=== PATIENT | male | born 1980 | race Caucasian/White ===

== ENCOUNTER 2025-01-05 09:47 | Outpatient (REF) | payer OTHER, SELFPAY ==
--- OUTSIDE RECORDS SUMMARY | 2025-01-05 10:03 | XMS_ITS | Clinical Summary ---
Author Organization [facility] Address [address] [place] [address] Care Team Providers Care Showcase Maker Name Role Phone Unavailable Primary Care Provider Unavailabl e Source Comments PLEASE NOTE, if this patient is a minor, it may be UNLAWFUL to discuss sensitive information that is contained in these records (such as FAMILY PLANNING, MENTAL HEALTH or SUBSTANCE ABUSE) with the minor patient's parent or other person without the patient's specific authorization.[facility] Immunizations Immunization Administration Dates Next Due PFIZER COVID VACCINE, PURPLE CAP, 12+ 08/29/2021 ,07/22/2021 Social History Tobacco Use Types Packs/Day Years Used Date Smoking Tobacco: Never Assessed Social Connections Answer Date Recorded Social Connections and Isolation 0 07/22/2021 Financial Resource Strain Answer Date R ecorded Financial Resource Strain 0 2021 Stress Answer Date Recorded Stress 0 07/22/2021 Physical Activity Answer Date Recorded Physical Activity 0 07/22/2021 Food Insecurity Answer Date Recorded Food 0 07/22/2021 Transportation Needs Answer Date Record ed Transportation 0 07/22/2021 Housing Stability Answer Date Recorded Housing 0 07/22/2021 Safety and Environment Answer Date Sahil rded Safety 0 07/22/2021 Utilities Answer Date Recorded Utilities 0 07/22/2021 Employment Answer Date Recorded Employment 0 07/22/2021 Sex and Gender Information Value Date Recorded Sex Assigned at Not on file Legal Sex Male 1:25 PM PDT Gender Identity Not on file Sexual Orientation Not on file Plan of Treatment Health Maintenance Due Date Last Done Comments Anxiety Screening 1981 Diabetes Screening 1981 Hepatitis C Screening 1981 Lipid Screening 1981 Tobacco Screening 1981 HIV Screening 1996 Hypertension Screening (#1) 1999 Imm-Hepatitis B (1 of 3 - 19 + 3-dose series) 2000 [id number] ( season) 2024 022, 07/22/2021 Alcohol and Drug Screen 07/19/2024 Depression Annual Screen 07/19/2024 Imm-DTaP/Tdap/Td (2 - Td or Tdap) 01/04/2025 015 Imm-Influenza (Season Ended) 2025 Insurance COVID19 [employer] UNINSURED TESTING AND TREATMENT FUND
[2025-01-05 12:35] LABS: TSH reflex Free T4 0.57 uIU/mL (0.32-4.0); Vitamin D 25-OH Total 33.5 ng/mL (>30)
== END 2025-01-05 09:48 | disposition home or self-care (01) ==
LOC: HO.HHCL 09:47
PROVIDERS: PCP Nurse Practitioner; Visit Provider Nurse Practitioner
DX: R00.2 Palpitations (principal); E55.9 Vitamin D deficiency, unspecified
CPT/HCPCS: 36415; 82306; 84443

== ENCOUNTER → 2025-01-18 15:03 | Outpatient (REF) | payer OTHER, SELFPAY ==
--- OUTSIDE RECORDS SUMMARY | 2025-01-18 15:05 | XMS_ITS | Clinical Summary ---
Author Organization [facility] Address [address] [place] [address] Phone Care Team Providers Care Sap Bw Bi Developer Name Role Phone Physician, No Pcp Primary Care Provider Unavaila ble Allergies No known active allergies Medications albuterol HFA (PROAIR HFA ; PROVENTIL HFA ; VENTOLIN HFA) 90 mcg/actuation inhaler Inhale 2 Puffs into the lungs every 6 hours as needed for Cough or Wheezing. 7 Active montelukast (SINGULAIR) 10 mg tablet TAKE 1 TAB BY MOUTH AT BEDTIME. 7 Active cetirizine (ZyrTEC) 10 mg capsule Take 10 mg by mouth. Daily Active albuterol 2.5 mg /3 mL (0.083 %) nebulizer solution Take 1 Vial by nebulization every 4 hours as needed for Wheezing. 6 Active fluticasone propionate (FLONASE) 50 mcg/actuation nasal spray 2 Sprays by Nasal route daily. 6 Active Active Problems Problem Noted Date Diagnosed Date Allergic conjunctivitis 11/12/2015 Allergic rhinitis due to pollen 11/12/2015 RAD (reactive airway disease) 11/12/2015 Encounters Date Type Department Care Team Description 12/05/2024 6:14 PM EDT - 12/05/2024 7:30 PM EDT Emergency [facility] Emergency [address] [place] [address] Tom Etienne MD Tachycardia (Primary Dx) Discharge Disposition: Home or Self Care from Last 3 Months Immunizations Name Administration Dates Next Due Pneumococcal polysaccharide 23 valent (Pneumovax 23) 2yo and older 11/27/2016 Tdap Tetanus diptheria acell ular pertussis (Boostrix; Adacel) 7yo and older 01/04/2015 Surgical History Surgery Date Site/Laterality Comments OTHER SURGICAL HISTORY PROCEDURE: DENIES PREVIOUS SURGERY Medical History Medical History Date Comments Asthma DX:Asthma Family History Medical History Relation Name Comments Hypertension Mother Heart attack Paternal Grandfather age 60 Relation Name Status Comments Mother Paternal Grandfather Social History Tobacco Use Types Packs/Day Years Used Date Smoking Tobacco: Never Alcohol Use Standard Drinks/Week Comments Yes 0 (1 standard drink = 0.6 oz pur e alcohol) Sex and Gender Information Value Date Recorded Sex Assigned at Not on file Legal Sex Male 12:52 AM EST Gender Identity Not on file Sexual Orientation Not on file Obstetrics History Last Filed Vital Signs Vital Sign Reading Time Taken Comments Blood Pressure 138/103 12/05/2024 7:17 PM EDT Pulse 80 12/05/2024 7:17 PM EDT Temperature 36.6 C (97.9 F) 12/05/2024 7:17 PM EDT Respiratory Rate 18 12/05/2024 7:17 PM EDT Oxygen Saturation 98% 12/05/2024 7:17 PM EDT Inhaled Oxygen Concentration - - Weight 95.3 kg (210 lb) 12/05/2024 2:56 PM EDT Height 177.8 cm (5' 10 ) 12/05/2024 2:56 PM EDT Body Mass Index 30.13 12/05/2024 2:56 PM EDT Plan of Treatment Health Maintenance Due Date Last Done Comments Hepatitis B Vaccines (1 of 3 - 19+ 3-dose series) 2000 Pneumococcal Vaccine: Pediatrics (0 to 5 Years) and At-Risk Patients (6 to 64 Years) (2 of 2 - PCV) 11/27/2017 11/27/2016 Social Influencers of Health Screening 06/21/2022 Depression Screening 07/22/2023 07/22/2022 COVID-19 Vaccine (2023-2 5 season) 2024 05/04/2022, 08/29/2021, 07/22/2021 DTaP,Tdap,and Td Vaccines (2 - Td or Tdap) 01/04/2025 01/04/2015 Influenza Vaccine (Season Ended) 2025 05/01/2022 Cholesterol Screening (Lipid Panel) 05/04/2027 05/04/2022, 05/21/2015 HIV Screening Completed 05/21/2015 Hepatitis C Screening Completed 05/21/2015 HIB Vaccines Aged Out No longer eligi ble based on patient's age to complete this topic HPV Vaccines Aged Out No longer eligi ble based on patient's age to complete this topic Hepatitis A Vaccines Aged Out No long er eligible based on patient's age to complete this topic IPV Vaccines Aged Out No longer eligi ble based on patient's age to complete this topic MMR Vaccines Aged Out No longer eligi ble based on patient's age to complete this topic Meningococcal ACWY Vaccine Aged Out N o longer eligible based on patient's age to complete this topic Meningococcal B Vaccine Aged Out No l onger eligible based on patient's age to complete this topic RSV Immunization Patients Under 20 months Aged Out No longer eligible b ased on patient's age to complete this topic Varicella Vaccines Aged Out No longer eligible based on patient's age to complete this topic Procedures Procedure Name Priority Date/Time Associated Diagnosis Comments ECG ANNOTATED 12/06/2024 XR CHEST 2 VIEWS STAT 12/05/2024 4:39 PM EDT TROPONIN I HIGH SENSITIVITY STAT 12/05/2024 4:26 PM EDT ECG 12-LEAD STAT 12/05/2024 4:14 PM EDT CBC WITH AUTO DIFFERENTIAL STAT 12/05/2024 2:53 PM EDT B-TYPE NATRIURETIC PEPTIDE STAT 12/05/2024 2:53 PM EDT MAGNESIUM STAT 12/05/2024 2:53 PM EDT LIPASE STAT 12/05/2024 2:53 PM EDT COMPREHENSIVE METABOLIC PANEL STAT 12/05/2024 2:53 PM EDT CBC AND DIFFERENTIAL STAT 12/05/2024 2:53 PM EDT TROPONIN I HIGH SENSITIVITY STAT 12/05/2024 2:53 PM EDT ECG 12-LEAD STAT 12/05/2024 2:45 PM EDT HEPATITIS C SCREENING Routine 05/21/2015 HIV SCREENING Routine 05/21/2015 LIPID PANEL Routine 05/21/2015 from Last 3 Months or Most Recently Relevant to Health Maintenance Results * ECG-Annotated (12/06/2024) us Provider Onbase MD ECG ORDERABLES Final Result * XR Chest 2 Views (12/05/2024 4:39 PM EDT) Anatomical Region Laterality Modality Body Radiographic Rowan ging 12/05/2024 4:49 PM EDT Impressions 12/05/2024 4:50 PM EDT No evidence of active pulmonary disease. No significant change from the prior study. -------- FINAL REPORT -------- Dictated By: Kahlil Sotelo Dictated Date: 12/05/2024 16:49 ET Assigned Physician: Kahlil Sotelo Reviewed and Electronically Signed By: Kahlil Sotelo Signed Date: 12/05/2024 16:50 ET Workstation ID: [id number] Transcribed By: Self Edit Transcribed Date: 12/05/2024 16:49 ET Narrative 12/05/2024 4:50 PM EDT INDICATION: Chest pain for one week FINDINGS: Two views of the chest were obtained. Compared to multiple prior studies most recent from February 21, 2022. Lung martinez are clear. Cardiomediastinal silhouette is normal in size and shape. Bony structures are within normal limits for the patient's age. Procedure Note Kahlil Sotelo MD - 12/05/2024 INDICATION: Chest pain for one week FINDINGS: Two views of the chest were obtained. Compared to multiple priorstudies most recent from February 21, 2022. Lung martinez are clear. Cardiomediastinal silhouette is normal in size and shape. Bony structures are within normal limits for the patient's age. IMPRESSION: No evidence of active pulmonary disease. No significant change from theprior study. -------- FINAL REPORT -------- Dictated By: Kahlil Sotelo Dictated Date: 12/05/2024 16:49 ET Assigned Physician: Kahlil Sotelo Reviewed and Electronically Signed By: Kahlil Sotelo Signed Date: 12/05/2024 16:50 ET Workstation ID: [id number] Transcribed By: Self Edit Transcribed Date: 12/05/2024 16:49 ET us Merlin Epstein DO IMG XR PROCEDURES Final Res ult * Troponin I high sensitivity (12/05/2024 4:26 PM EDT) Only the most recent of2 resultswithin the time period is included. [facility] High Sensitivity Troponin I 6 <=79 ng/L LAB CHEMISTRY METHOD 12/05/2024 5:18 PM EDT [facility] Blood Venous blood specimen / Unknown Venipuncture / Unknown 12/05/2024 4:26 PM EDT 12/05/2024 4:40 PM EDT Narrative [facility] - 12/05/2024 5:18 PM EDT High levels of biotin in samples may falsely decrease hsTroponin values. Use caution when interpreting hsTroponin results in patients taking biotin who exhibit renal impairment (eGFR <60) or in patients taking more than 20 mg/day of biotin. us Merlin Epstein DO LAB BLOOD ORDERABLES Final Result [facility] [address] [place] [address], [place] [phone] * ECG 12 lead (12/05/2024 4:14 PM EDT) Only the most recent of2 resultswithin the time period is included. [facility] Signature Ventricular Rate ECG 74 BPM GEMUSE Atrial Rate 74 BPM GEMUSE P-R Interval 176 ms GEMUSE QRS Duration 98 ms GEMUSE Q-T Interval 374 ms GEMUSE QTc 415 ms GEMUSE P Wave Brock 49 degrees GEMUSE R Brock 48 degrees GEMUSE T Brock 56 degrees GEMUSE ECG Interpretation Normal sinus rhythm Normal ECG When compared with ECG of 05-DEC-2024 14:45, No significant change was found Confirmed by VIRGINIA ARMSTRONG ([id number]) on 12/06/2024 5:34:41 PM GEMUSE 12/05/2024 4:14 PM EDT 12/06/2024 5:34 PM EDT us Merlin Epstein DO ECG ORDERABLES Final Resul t GEMUSE * (ABNORMAL) CBC auto differential (12/05/2024 2:53 PM EDT) WBC 6.1 4.8 - 10.8 K/mcL LAB HEMETOLOGY METHOD 12/05/2024 3:18 PM EDT [facility] RBC 4.60 4.50 - 5.50 M/mcL LAB HEMETOLOGY METHOD 12/05/2024 3:18 PM EDT [facility] Hemoglobin 14.2 13.5 - 17.5 g/dL LAB HEMETOLOGY METHOD 12/05/2024 3:18 PM EDT [facility] Hematocrit 40.9(L) 42.0 - 54.0 % LAB HEMETOLOGY METHOD 12/05/2024 3:18 PM EDT [facility] MCV 89.9 79.0 - 98.0 FL LAB HEMETOLOGY METHOD 12/05/2024 3:18 PM EDT [facility] MCH 31.2 27.0 - 32.0 pcg LAB HEMETOLOGY METHOD 12/05/2024 3:18 PM EDT [facility] MCHC 34.7 32.0 - 37.0 g/dL LAB HEMETOLOGY METHOD 12/05/2024 3:18 PM EDT [facility] RDW 12.4 11.0 - 15.0 % LAB HEMETOLOGY METHOD 12/05/2024 3:18 PM EDT [facility] Platelets 199 130 - 400 K/mcL LAB HEMETOLOGY METHOD 12/05/2024 3:18 PM EDT [facility] MPV 9.6 7.0 - 11.0 FL LAB HEMETOLOGY METHOD 12/05/2024 3:18 PM EDT [facility] NRBC 0.0 <1.0 % LAB HEMETOLOGY METHOD 12/05/2024 3:18 PM EDT [facility] NRBC Absolute 0.00 <0.10 K/mcL LAB HEMETOLOGY METHOD 12/05/2024 3:[facility] PM [facility] Neutrophils Relative 44.9 % LAB HEMETOLOGY METHOD 12/05/2024 3:18 PM EDT [facility] Lymphocytes Relative 33.7 % LAB HEMETOLOGY METHOD 12/05/2024 3:18 PM EDT [facility] Monocytes Relative 8.0 % LAB HEMETOLOGY METHOD 12/05/2024 3:18 PM [facility] Eosinophils Relative 12.5 % LAB HEMETOLOGY METHOD 12/05/2024 3:18 PM EDT [facility] Basophils Relative 0.7 % LAB HEMETOLOGY METHOD 12/05/2024 3:18 PM EDT [facility] Immature Granulocytes Relative 0.2 % LAB HEMETOLOGY METHOD 12/05/2024 3:18 PM EDT [facility] Neutrophils Absolute 2.76 1.50 - 7.00 K/mcL LAB HEMETOLOGY METHOD 12/05/2024 3:18 PM EDT [facility] Lymphocytes Absolute 2.07 1.00 - 5.00 K/mcL LAB HEMETOLOGY METHOD 12/05/2024 3:18 PM EDT [facility] Monocytes Absolute 0.49 0.20 - 1.00 K/mcL LAB HEMETOLOGY METHOD 12/05/2024 3:18 PM EDT [facility] Eosinophils Absolute 0.77(H) 0.00 - 0.50 K/mcL LAB HEMETOLOGY METHOD 12/05/2024 3:18 PM EDT [facility] Basophils Absolute 0.04 0.00 - 0.20 K/[facility] LAB HEMETOLOGY METHOD 12/05/2024 3:18 PM EDT [facility] Immature Granulocytes Absolute 0.01 0.00 - 0.03 K/[facility] LAB HEMETOLOGY METHOD 12/05/2024 3:18 PM EDT [facility] Blood Venous blood specimen / Unknown Venipuncture / Unknown 12/05/2024 2:53 PM EDT 12/05/2024 3:09 PM EDT Merlin Epstein DO LAB BLOOD ORDERABLES Final Result [facility] [address] [place] [address], [place] [phone] * B-type natriuretic peptide (12/05/2024 2:53 PM EDT) BNP <2 <=100 pcg/mL LAB CHEMISTRY METHOD 12/05/2024 3:42 PM EDT [facility] Blood Venous blood specimen / Unknown Venipuncture / Unknown 12/05/2024 2:53 PM EDT 12/05/2024 3:09 PM EDT Merlin Epstein DO LAB BLOOD ORDERABLES Final Result [facility] [address] [place] [address], [place] [phone] * Magnesium (12/05/2024 2:53 PM EDT) [facility] Magnesium 2.0 1.9 - 2.6 mg/dL LAB CHEMISTRY METHOD 12/05/2024 3:39 PM EDT [facility] Blood Venous blood specimen / Unknown Venipuncture / Unknown 12/05/2024 2:53 PM EDT 12/05/2024 3:09 PM EDT Merlin Epstein LAB BLOOD ORDERABLES Final Result Performing Organization Address City/[facility]/ZIP Co de Phone Number [facility] [address] [place] [address], [place] [phone] * Lipase (12/05/2024 2:53 PM EDT) [facility] Lipase 28 13 - 75 unit/L LAB CHEMISTRY METHOD 12/05/2024 3:39 PM EDT [facility] Blood Venous blood specimen / Unknown Venipuncture / Unknown 12/05/2024 2:53 PM EDT 12/05/2024 3:09 PM EDT Merlin Epstein LAB BLOOD ORDERABLES Final Result Performing Organization Address [facility]/ZIP Co de Phone Number [facility] [address] [place] [address], [place] [phone] * (ABNORMAL) Comprehensive metabolic panel (12/05/2024 2:53 PM EDT) [facility] Sodium 136 133 - 145 mmol/L LAB CHEMISTRY METHOD 12/05/2024 3:39 PM EDT [facility] Potassium 4.6 3.5 - 5.5 mmol/L LAB CHEMISTRY METHOD 12/05/2024 3:39 PM EDT [facility] Chloride 104 96 - 110 mmol/L LAB CHEMISTRY METHOD 12/05/2024 3:39 PM EDT [facility] CO2 29 21 - 32 mmol/L LAB CHEMISTRY METHOD 12/05/2024 3:39 PM [facility] Anion Gap 3 3 - 11 LAB CHEMISTRY METHOD 12/05/2024 3:39 PM [facility] Glucose 113(H) 70 - 100 mg/dL LAB CHEMISTRY METHOD 12/05/2024 3:39 PM [facility] BUN 11 5 - 25 mg/dL LAB CHEMISTRY METHOD 12/05/2024 3:39 PM [facility] Creatinine 0.92 0.70 - 1.30 mg/dL LAB CHEMISTRY METHOD 12/05/2024 3:39 PM [facility] eGFR 106 >=60 mL/min/1. 73m2 LAB CHEMISTRY METHOD 12/05/2024 3:39 PM [facility] Comment:Calculation based on the Chronic Kidney Disease Epidemiology Collaboration (CKD-EPI) equation refit without adjustment for race. BUN/Creatinine Ratio 12.0 LAB CHEMISTRY METHOD 12/05/2024 3:39 PM [facility] Calcium 9.1 8.5 - 10.5 mg/dL LAB CHEMISTRY METHOD 12/05/2024 3:39 PM [facility] AST (SGOT) 19 10 - 42 unit/L LAB CHEMISTRY METHOD 12/05/2024 3:39 PM [facility] ALT (SGPT) 39 10 - 60 unit/L LAB CHEMISTRY METHOD 12/05/2024 3:39 PM [facility] Alkaline Phosphatase 70 42 - 121 unit/L LAB CHEMISTRY METHOD 12/05/2024 3:39 PM [facility] Total Protein 7.4 6.0 - 8.0 g/dL LAB CHEMISTRY METHOD 12/05/2024 3:39 PM [facility] Albumin 4.1 3.2 - 5.0 g/dL LAB CHEMISTRY METHOD 12/05/2024 3:39 PM EDT [facility] Total Bilirubin 0.3 0.0 - 1.4 mg/dL LAB CHEMISTRY METHOD 12/05/2024 3:39 PM EDT [facility] Blood Venous blood specimen / Unknown Venipuncture / Unknown 12/05/2024 2:53 PM EDT 12/05/2024 3:09 PM EDT Merlin Epstein DO LAB BLOOD ORDERABLES Final Result [facility] [address] [place] [address], [place] [phone] * HIV Screening (05/21/2015) HIV Screening abstracted Historical Provider HEALTH MAINTENANCE Final Result * Hepatitis C Screening (05/21/2015) Hepatitis C Screening abstracted Historical Provider HEALTH MAINTENANCE Final Result * Lipid panel (05/21/2015) LDL/HDL Ratio 3 0 - 4 Triglycerides 94 0 - 150 mg/dL Cholesterol 153 0 - 200 mg/dL HDL 44 >=40 mg/dL LDL Cholesterol 90 0 - 100 mg/dL Blood Venous blood specimen / Unknown Historical Provider LAB BLOOD ORDERABLES Shannan l Result from Last 3 Months or Most Recently Relevant to Health Maintenance Insurance [facility] Care Teams Sap Bw Bi Developer Relationship Specialty Start Date End Date Physician, No Pcp PCP - General 12/05/24
--- OUTSIDE RECORDS SUMMARY | 2025-01-18 15:05 | XMS_ITS | Encounter Summary ---
Author Organization [facility] [employer] Address [address] [place] [address] [address] [place] [address] Care Team Providers Care Practice Managers Name Role Phone Susan Church Primary Care Provider [phone] Sujata Rutledge NP Primary Care Provider [phone] Reason for Visit * Reason Onset Date Comments Med Refill 03/24/2023 Encounter Details Date Type Department Care Team (Late Contact Info) Description 03/24/2023 Refill [facility] [address] [place] [address] Susan Church FNP [address] [place] [address] Social History Tobacco Use Types Packs/Day Years Used Date Smoking Tobacco: Never Smokeless Tobacco: Never Alcohol Use Standard Drinks/Week Comments Not Currently 0 (1 standard drink = 0.6 oz pur e alcohol) Depression Answer Date Recorded Patient Health Questionnaire-9 Score 0 07/22/2022 Depression Answer Date Recorded Patient Health Questionnaire-2 Score 0 07/22/2022 Sex and Gender Information Value Date Recorded Sex Assigned at Male 05/18/2022 10:40 AM EDT Legal Sex Male 10:40 AM EDT Gender Identity Male 05/18/2022 10:40 AM EDT Sexual Orientation Choose not to disclose 2021 10:40 AM EDT documented as of this encounter Plan of Treatment Upcoming Encounters Date Type Department Care Team (Late st Contact Info) Description 02/02/2025 9:00 AM EDT Office Visit [facility] [address] [place] [address] Sujata Rutledge NP [address] [place] [address] documented as of this encounter Visit Diagnoses Not on filedocumented in this encounter Additional Health Concerns Assessment Noted Time PHQ-9 Depression Total Score: 0 07/22/19 23 11:11 AM EST documented as of this encounter Care Teams Practice Managers Relationship Specialty Start Date End Date Susan Church FNP [address] [place] [address] PCP - General Family Medicine 05/01/22 03/20/24 Sujata Rutledge NP [address] [place] [address] PCP - General Family Medicine 03/21/24 documented as of this encounter
--- OUTSIDE RECORDS SUMMARY | 2025-01-18 15:05 | XMS_ITS | Clinical Summary ---
Author Organization [facility] Address [address] [place] [address] Care Team Providers Care Dorr Operator Name Role Phone Unavailable Primary Care Provider [...] 3 - 19 + 3-dose series) 2000 [id number] ( season) 2024 022, 07/22/2021 Alcohol and Drug Screen 07/19/2024 Depression Annual Screen 07/19/2024 Imm-DTaP/Tdap/Td (2 - Td or Tdap) 01/04/2025 015 Imm-Influenza (Season Ended) 2025 Insurance COVID19 [employer] UNINSURED TESTING AND TREATMENT FUND
== END ==
LOC: HO.CARD 15:03
PROVIDERS: PCP Nurse Practitioner; Visit Provider Nurse Practitioner
DX: R00.2 Palpitations (principal)
CPT/HCPCS: 93225

== ENCOUNTER → 2025-01-18 15:06 | Outpatient (BNV) | payer OTHER, SELFPAY | PROVIDERS: PCP Nurse Practitioner; Visit Provider Internal Medicine | DX: I44.1 Atrioventricular block, second degree (principal) | CPT/HCPCS: 93227 ==